=== PATIENT | female | born 1995 | race Caucasian/White ===

== ENCOUNTER 2017-08-20 08:43 | Inpatient (IN) | payer MEDICAID ==
[~2017-08-20] VITALS: Ht 157.5 cm; Wt 77.7 kg
[2017-08-21] VITALS (40 sets, daily range): BP systolic 126–180; BP diastolic 63–112; PULSE 84–134; TEMP 98–99.4
[2017-08-21] MEDS ORDERED: PROAIR HFA0.09 MG/AC IH (04:13)
[2017-08-21 05:13] LABS: BASO % 0.4 % (0.0-2.0); EOS # 0.1 (0.0-0.7); EOS % 0.7 % (0-4.0); GRAN % 61.6 % (42.2-75.2); LYMPH # 2.1 (1.2-3.4); LYMPH % 25.7 % (20.0-51.0); MEAN CELL VOLUME 92 fl (80.0-95.0); MEAN CORPUSCULAR HGB CONC 33 g/dl (33.0-37.0); MONO # 0.9 (0.1-0.6); MONO % 11.2 % (1.7-9.3); PLATELET COUNT 130 K/mm3 (130-400); RED BLOOD COUNT 3.67 M/mm3 (4.10-5.30); REDCELL DISTRIBUTION WIDTH-CV 13.2 % (11.5-14.5)
[2017-08-21 05:16] LABS: HEMATOCRIT 33.8 % (35.0-45.0); HEMOGLOBIN 11.3 g/dl (12.0-15.0); MEAN CORPUSCULAR HEMOGLOBIN 31 pg (26.0-32.0)
[2017-08-21 05:23] LABS: ALBUMIN 3.2 gm/dL (3.5-5.0); BILIRUBIN,TOTAL 0.2 mg/dL (0.0-1.0); CALCIUM 8.7 mg/dL (8.4-10.2); CREATININE, serum 0.79 mg/dL (0.52-1.25); POTASSIUM 4.1 mmol/L (3.4-5.0); TOTAL PROTEIN 6.2 gm/dL (6.4-8.2)
[2017-08-21 08:16] LABS: COLLECTION METHOD CATHETER
[2017-08-21 08:30] LABS: MUCOUS Present /lpf; PH 5 (5-8); URINE APPEARANCE Hazy; URINE BACTERIA Rare /hpf; URINE BILIRUBIN Negative (NEGATIVE); URINE BLOOD 2+ (NEGATIVE); URINE COLOR Yellow; URINE GLUCOSE Negative (NEGATIVE); URINE KETONE Trace (NEGATIVE); URINE LEUKOCYTE ESTERASE Negative (NEGATIVE); URINE NITRATE Negative (NEGATIVE); URINE PROTEIN(semi-quant) 3+ (NEGATIVE); URINE RBC >50 /hpf; URINE UROBILINOGEN Negative (NEGATIVE); URINE WBC 0-2 /hpf
[2017-08-22 00:10] VITALS: BP 123/62; PULSE 112; TEMP 98.5
[2017-08-22 04:15] VITALS: BP 113/79; PULSE 91; TEMP 98
[2017-08-22 06:54] LABS: BASO % 0.2 % (0.0-2.0); GRAN # 10.4 (1.4-6.5); GRAN % 74.1 % (42.2-75.2); LYMPH # 2.3 (1.2-3.4); LYMPH % 16.5 % (20.0-51.0); MEAN CELL VOLUME 94 fl (80.0-95.0); MEAN CORPUSCULAR HGB CONC 33 g/dl (33.0-37.0); MEAN PLATELET VOLUME 12.7 fl (7.4-10.4); MONO # 1.2 (0.1-0.6); MONO % 8.8 % (1.7-9.3); PLATELET COUNT 111 K/mm3 (130-400); RED BLOOD COUNT 2.32 M/mm3 (4.10-5.30); REDCELL DISTRIBUTION WIDTH-CV 14.1 % (11.5-14.5)
[2017-08-22 07:01] LABS: HEMATOCRIT 21.9 % (35.0-45.0); HEMOGLOBIN 7.2 g/dl (12.0-15.0); MEAN CORPUSCULAR HEMOGLOBIN 31 pg (26.0-32.0)
[2017-08-22 08:38] VITALS: BP 132/80; PULSE 106; TEMP 99.7
[2017-08-22 16:59] VITALS: BP 134/81; PULSE 116; TEMP 98
[2017-08-22 19:45] VITALS: BP 127/71; PULSE 96; TEMP 97.9
[2017-08-23 07:37] VITALS: BP 125/70; PULSE 100; TEMP 98
[2017-08-23 07:47] LABS: MEAN CELL VOLUME 98 fl (80.0-95.0); MEAN CORPUSCULAR HGB CONC 32 g/dl (33.0-37.0); MEAN PLATELET VOLUME 12.5 fl (7.4-10.4); PLATELET COUNT 120 K/mm3 (130-400); RED BLOOD COUNT 2.01 M/mm3 (4.10-5.30); REDCELL DISTRIBUTION WIDTH-CV 14.2 % (11.5-14.5)
[2017-08-23 07:50] LABS: HEMATOCRIT 19.6 % (35.0-45.0); HEMOGLOBIN 6.3 g/dl (12.0-15.0); MEAN CORPUSCULAR HEMOGLOBIN 31 pg (26.0-32.0)
[2017-08-23] MEDS ORDERED: FERROUS SU325 MG/TAB PO (09:08)
== END 2017-08-23 12:12 | disposition home or self-care (01) | DRG 774 ==
LOC: OB 08-21 03:50 → LDR 08-21 03:50 → OB 08-21 15:40 → LDR 09-02 08:43
PROVIDERS: Obstetrics & Gynecology; Student in an Organized Health Care Education/Training Program
PROC: 10E0XZZ Delivery of Products of Conception, External Approach (ICD-10-PCS; principal; 2017-08-21)
PROC: 0KQM0ZZ Repair Perineum Muscle, Open Approach (ICD-10-PCS; 2017-08-21)
DX: O14.94 Unspecified pre-eclampsia, complicating childbirth (principal); O72.1 Other immediate postpartum hemorrhage; O98.312 Other infections with a predominantly sexual mode of transmission complicating pregnancy, second trimester; O48.0 Post-term pregnancy; O70.1 Second degree perineal laceration during delivery; A56.02 Chlamydial vulvovaginitis; Z3A.40 40 weeks gestation of pregnancy; Z37.0 Single live birth
CPT/HCPCS: J0690; J2405; J2590; J7120